=== PATIENT | female | born 1950 | race Caucasian/White ===

== ENCOUNTER → 2020-02-29 | Outpatient (CLI) | payer MEDICARE, OTHER ==
[~2020-02-29] MED LIST: CEPH500T PO; FLUC100T PO; TRM50T PO
--- NOTE | 2020-02-29 12:32 | Diagnostic Imaging Report ---
EXAMINATION: Chest 2 view HISTORY: Cough. Shortness of breath. COPD. COMPARISON: None available. FINDINGS: The lungs are hyperinflated. No focal consolidation or pulmonary masses seen. Mild bronchial wall thickening is present. The cardiac silhouette is normal in size. Aortic stent graft is present. There is calcified aortic atherosclerotic plaque. No large pleural effusion or pneumothorax. The osseous structures demonstrate no acute fracture or dislocation. IMPRESSION: 1. Hyperinflated lungs, consistent with a history of COPD. 2. Bronchial wall thickening, which can be seen with bronchitis/bronchiolitis. No focal consolidation. Dictated by: Dictated on workstation # [id number]
== END ==
LOC: RAD FS 11:43
PROVIDERS: ATTEND Nurse Practitioner Family
DX: J44.1 Chronic obstructive pulmonary disease with (acute) exacerbation (principal); Z09 Encounter for follow-up examination after completed treatment for conditions other than malignant neoplasm; Z87.01 Personal history of pneumonia (recurrent)
CPT/HCPCS: 71046

== ENCOUNTER → 2021-04-22 | Outpatient (CLI) | payer MEDICARE, OTHER | LOC: IHC 18:00 | PROVIDERS: ATTEND Family Medicine | DX: Z43.5 Encounter for attention to cystostomy (principal); N31.9 Neuromuscular dysfunction of bladder, unspecified | CPT/HCPCS: 87088 ==

== ENCOUNTER → 2021-06-27 | Outpatient (CLI) | payer MEDICARE, OTHER | LOC: IHC 13:15 | PROVIDERS: ATTEND Nurse Practitioner Family | DX: Z43.5 Encounter for attention to cystostomy (principal); N31.9 Neuromuscular dysfunction of bladder, unspecified | CPT/HCPCS: 87077; 87088; 87186 ==

== ENCOUNTER → 2021-07-04 | Outpatient (CLI) | payer MEDICARE, OTHER ==
--- NOTE | 2021-07-04 12:44 | Diagnostic Imaging Report ---
INDICATION: Low back pain. EXAMINATION: Lumbar spine. FINDINGS: AP and lateral views of the lumbar spine show normal vertebral body height and alignment. There is mild narrowing of the intervertebral disc spaces with small anterior osteophyte formation. IMPRESSION: Mild spondylosis deformans. No acute abnormality seen. Dictated by: Dictated on workstation # [id number]
--- NOTE | 2021-07-04 12:58 | Diagnostic Imaging Report ---
INDICATION: Neck pain. EXAMINATION: Cervical spine. TECHNIQUE: AP and lateral views of the cervical spine were obtained. FINDINGS: The odontoid is intact. The vertebral body height and alignment appear normal. There is disc space narrowing at C5-C6. IMPRESSION: Degenerative disc changes at C5-C6. No fracture or acute abnormality is seen. Dictated by: Dictated on workstation # [id number]
== END ==
LOC: RAD FS 11:56
PROVIDERS: ATTEND Nurse Practitioner Family
DX: M47.816 Spondylosis without myelopathy or radiculopathy, lumbar region (principal); M50.322 Other cervical disc degeneration at C5-C6 level
CPT/HCPCS: 72040; 72100

== ENCOUNTER → 2021-08-09 | Outpatient (CLI) | payer MEDICARE, OTHER | LOC: IHC 13:19 | PROVIDERS: ATTEND Urology | DX: Z43.5 Encounter for attention to cystostomy (principal); Z96.0 Presence of urogenital implants | CPT/HCPCS: 87077; 87088 ==

== ENCOUNTER → 2021-08-15 | Outpatient (CLI) | payer MEDICARE, OTHER ==
--- NOTE | 2021-08-15 13:44 | Diagnostic Imaging Report ---
EXAMINATION: CHEST (PA AND LATERAL). CLINICAL INDICATION: 70-year-old female, persistent cough. COMPARISON: Chest radiographs February 29, 2020. FINDINGS: The heart size and mediastinal contours are unchanged. There is redemonstrated graft material projecting over the heart. There is no identified pneumothorax. There is no pleural effusion. There is no identified interval focal airspace consolidation. There is mild scarring and/or subsegmental atelectasis in the right and left midlung. There are mild to moderate disc degenerative changes of the mid thoracic spine. IMPRESSION: No identified interval acute cardiopulmonary abnormality. Dictated by: Dictated on workstation # [id number]
== END ==
LOC: RAD FS 11:51
PROVIDERS: ATTEND Nurse Practitioner Family
DX: R05.3 Chronic cough (principal)
CPT/HCPCS: 71046

== ENCOUNTER 2021-10-18 12:56 | Emergency (ER) | payer MEDICARE, OTHER ==
[~2021-10-18] VITALS: Ht 172 cm; Wt 84.0 kg
[2021-10-18 13:00] VITALS: BP 114/64
--- NOTE | 2021-10-18 13:04 | ED Upper Extremity ---
General Stated Complaint: WRIST PAIN History of Present Illness Date Seen by Provider: Oct 18, 2021 Time Seen by Provider: 13:03 Initial Comments 70-year-old female presents with right wrist pain and swelling. She reports that started yesterday. 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 She denies any new injuries or activities. She states that the swelling started yesterday. That there is pain with any movement of her wrist or her thumb. No reports of any recent illnesses. Allergies and Home Medications Allergies Coded Allergies: butorphanol (Unverified Allergy, Unknown, 06/19/16) doxycycline (Unverified Allergy, Unknown, 06/19/16) morphine (Unverified Allergy, Unknown, 06/19/16) Uncoded Allergies: SULFA (Allergy, Unknown, 06/19/16) Patient Home Medication List Home Medication List Reviewed: Yes Cephalexin (Cephalexin) 500 Mg Tablet, 500 MG PO TID Prescribed by: LIZA CASTAÑEDA on 06/19/16 1501 Fluconazole (Diflucan) 100 Mg Tablet, 100 MG PO DAILY Prescribed by: LIZA CASTAÑEDA on 06/19/16 1536 Methylprednisolone (Methylprednisolone Dose Pack) 4 Mg Tab.ds.pk, 4 MG PO UD Prescribed by: NAPOLEON HINKLE on 10/18/21 1415 Naproxen (Naprosyn) 500 Mg Tablet, 500 MG PO BID Prescribed by: NAPOLEON HINKLE on 10/18/21 1415 Tramadol HCl (Tramadol HCl) 50 Mg Tablet, 50 MG PO Q4H PRN for PAIN Prescribed by: LIZA CASTAÑEDA on 06/19/16 1501 Review of Systems Constitutional: No chills, No fever EENTM: no symptoms reported Respiratory: no symptoms reported Cardiovascular: no symptoms reported Gastrointestinal: no symptoms reported Genitourinary: no symptoms reported Musculoskeletal: see HPI Skin: see HPI Psychiatric/Neurological: No Symptoms Reported Past Derbrqr-Rrmllw-Hcglkh Hx Past Medical History Hysterectomy, Orthopedic Headaches /Migraines, Stroke Family Medical History No Pertinent Family Hx Physical Exam Vital Signs Vital Signs - First Documented 10/18/21 13:00 Temp 37.5 Pulse 75 Resp 16 B/P (MAP) 114/64 (81) Pulse Ox 96 O2 Delivery Room Air Capillary Refill : Height, Weight, BMI Height: 5'8" Weight: 240lbs. oz. [id number]; BMI Method:Stated General Appearance: WD/WN Neck: full range of motion, supple Cardiovascular: normal peripheral pulses, regular rate, rhythm Respiratory: lungs clear, normal breath sounds Gastrointestinal: non tender, soft Shoulder: normal inspection Elbow/Forearm: normal inspection Wrist: Yes limited ROM, Yes pain, Yes soft tissue tenderness, Yes swelling Hand: swelling Neurologic/Psychiatric: taker down II-XII nml as tested, no motor/sensory deficits, alert, normal mood/affect, oriented x 3 Skin: other (Mild swelling of the right wrist but no erythema, very minimal increased warmth) Progress/Results/Core Measures Results/Orders Lab Results Laboratory Tests Test 10/18/21 13:13 Range/Units White Blood Count 4.3 4.3-11.0 10^3/uL Red Blood Count 3.74 L 3.80-5.11 10^6/uL Hemoglobin 11.5 11.5-16.0 g/dL Hematocrit 34 L 35-52 % Mean Corpuscular Volume 91 80-99 fL Mean Corpuscular Hemoglobin 31 25-34 pg Mean Corpuscular Hemoglobin Concent 34 32-36 g/dL Red Cell Distribution Width 13.6 10.0-14.5 % Platelet Count 166 130-400 10^3/uL Mean Platelet Volume 9.2 9.0-12.2 fL Immature Granulocyte % (Auto) 1 % Neutrophils (%) (Auto) 56 42-75 % Lymphocytes (%) (Auto) 28 12-44 % Monocytes (%) (Auto) 9 0-12 % Eosinophils (%) (Auto) 6 0-10 % Basophils (%) (Auto) 1 0-10 % Neutrophils # (Auto) 2.4 1.8-7.8 10^3/uL Lymphocytes # (Auto) 1.2 1.0-4.0 10^3/uL Monocytes # (Auto) 0.4 0.0-1.0 10^3/uL Eosinophils # (Auto) 0.3 0.0-0.3 10^3/uL Basophils # (Auto) 0.0 0.0-0.1 10^3/uL Immature Granulocyte # (Auto) 0.0 0.0-0.1 10^3/uL Sodium Level 141 135-145 MMOL/L Potassium Level 3.6 3.6-5.0 MMOL/L Chloride Level 104 98-107 MMOL/L Carbon Dioxide Level 26 21-32 MMOL/L Anion Gap 11 5-14 MMOL/L Blood Urea Nitrogen 10 7-18 MG/DL Creatinine 0.71 0.60-1.30 MG/DL Estimat Glomerular Filtration Rate 91 BUN/Creatinine Ratio 14 Glucose Level 102 70-105 MG/DL Calcium Level 8.9 8.5-10.1 MG/DL Corrected Calcium 8.9 8.5-10.1 MG/DL Total Bilirubin 0.3 0.1-1.0 MG/DL Aspartate Amino Transf (AST/SGOT) 19 5-34 U/L Alanine Aminotransferase (ALT/SGPT) 15 0-55 U/L Alkaline Phosphatase 85 40-136 U/L C-Reactive Protein 1.82 H <0.50 MG/DL Total Protein 7.3 6.4-8.2 GM/DL Albumin 4.0 3.2-4.5 GM/DL My Orders Orders - HINKLE,NAPOLEON L DO Wrist 3 View Right (10/18/21 13:06) Cbc With Automated Diff (10/18/21 13:06) Comprehensive Metabolic Panel (10/18/21 13:06) Uric Acid (10/18/21 13:06) Crp Fs (10/18/21 13:13) Ketorolac Injection (Toradol Injection) (10/18/21 13:54) Vital Signs/I&O 10/18/21 13:00 Temp 37.5 Pulse 75 Resp 16 B/P (MAP) 114/64 (81) Pulse Ox 96 O2 Delivery Room Air Progress Progress Note : Progress Note Patient with likely reactive arthritis however gout is not completely ruled out. Patient will be treated with Naprosyn 500 mg twice daily along with a Medrol Dosepak. She should follow with her primary care provider on Saturday or Saturday of next week. Patient stable discharged home Departure Impression Primary Impression: Reactive arthritis of right wrist Disposition: HOME, SELF-CARE Condition: Stable Departure-Patient Inst. Referrals: MIRIAM LARRY APRN (PCP) Primary Care Physician [facility] (Family) Primary Care Physician Patient Instructions: Gout (DC), Reactive Arthritis Add. Discharge Instructions: Follow-up with your primary care provider first thing next week for recheck of your symptoms You may use topical lidocaine with menthol as directed on pack Ice to affected area for approximate 10 minutes 3-4 times a day Scripts Naproxen (Naprosyn) 500 Mg Tablet 500 MG PO BID, #30 TAB 0 Refills Prov: NAPOLEON HINKLE DO 10/18/21 Methylprednisolone (Methylprednisolone Dose Pack) 4 Mg Tab.ds.pk 4 MG PO UD for 6 Days, #21 PKG PER DOSE PACK INSTRUCTIONS Prov: NAPOLEON HINKLE DO 10/18/21 NAPOLEON HINKLE DO Oct 18, 2021 13:03
[2021-10-18 13:31] LABS: BASOPHILS % (AUTO) 1 % (0-10); EOSINOPHILS # (AUTO) 0.3 10^3/uL (0.0-0.3); EOSINOPHILS % (AUTO) 6 % (0-10); HEMATOCRIT 34 % (35-52); HEMOGLOBIN 11.5 g/dL (11.5-16.0); LYMPHOCYTES # (AUTO) 1.2 10^3/uL (1.0-4.0); LYMPHOCYTES % (AUTO) 28 % (12-44); MEAN CORPUSCULAR HEMOGLOBIN 31 pg (25-34); MEAN CORPUSCULAR HGB CONC 34 g/dL (32-36); MEAN CORPUSCULAR VOLUME 91 fL (80-99); MEAN PLATELET VOLUME 9.2 fL (9.0-12.2); MONOCYTES # (AUTO) 0.4 10^3/uL (0.0-1.0); MONOCYTES % (AUTO) 9 % (0-12); NEUTROPHILS # (AUTO) 2.4 10^3/uL (1.8-7.8); NEUTROPHILS % (AUTO) 56 % (42-75); PLATELET COUNT 166 10^3/uL (130-400); WHITE BLOOD COUNT 4.3 10^3/uL (4.3-11.0)
[2021-10-18 13:41] LABS: BILIRUBIN,TOTAL 0.3 MG/DL (0.1-1.0); CALCIUM 8.9 MG/DL (8.5-10.1); CREATININE SERUM 0.71 MG/DL (0.60-1.30); POTASSIUM 3.6 MMOL/L (3.6-5.0); TOTAL PROTEIN 7.3 GM/DL (6.4-8.2)
--- NOTE | 2021-10-18 13:47 | Diagnostic Imaging Report ---
HISTORY: Swelling and pain in the right wrist. TECHNIQUE: Three views of the right wrist. COMPARISON: None. FINDINGS: No acute fracture or dislocation is seen in the right wrist. Alignment appears normal. There are severe degenerative changes at the basal joints of the thumb. No cortical erosions are seen. IMPRESSION: 1. Advanced degenerative changes of the basal joints of the right thumb. Dictated by: Dictated on workstation # [id number]
[2021-10-18] MEDS ORDERED: KETOROLAC 30 MG/ML VIAL IM STA (13:54)
[2021-10-18] MEDS ORDERED: NAPR-1071 PO (14:15)
[2021-10-18] MEDS ORDERED: METH4TAB10 PO (14:15)
[2021-10-18 15:08] LABS: URIC ACID 4.7 MG/DL (2.6-7.2)
== END 2021-10-18 14:25 | disposition home or self-care (01) ==
LOC: EDUNIT# 12:56 → ER FS 12:58
DX: M19.031 Primary osteoarthritis, right wrist (principal)
CPT/HCPCS: 36415; 73110; 80053; 84550; 85025; 86141

== ENCOUNTER 2022-02-23 16:27 | Emergency (ER) | payer MEDICARE, OTHER ==
[~2022-02-23] VITALS: Ht 172.7 cm; Wt 87.5 kg
[~2022-02-23 16:27] MED LIST changes: +METH4TAB10 PO; +NAPR-1071 PO
[2022-02-23] MEDS ORDERED: NS IV 1000 ML 1,000 ML IV STA (16:40)
[2022-02-23] MEDS ORDERED: dilTIAZem DRIP PRE-MIX 125 ML IV STA (16:40)
--- NOTE | 2022-02-23 16:46 | ED Chest Pain ---
General Stated Complaint: SOA,CP Source: patient Exam Limitations: no limitations History of Present Illness Date Seen by Provider: Feb 23, 2022 Time Seen by Provider: 16:28 Initial Comments 71-year-old female with past medical history of A. fib on Warfarin and Metoprolol, HTN, HLD, COPD, CVA with residual right sided weakness as well as suprapubic catheter coming in due to chest pain. Started 4 hours ago on the left side of her chest going to her left shoulder. It is constant, nothing seems to make it better or worse. She has associated palpitations with it and feels like her heart is racing. When she checked her heart rate it is often in the 120s to 130s. She is taking her medicines today including her warfarin and her metoprolol. Denies any cardiac disease such as CAD, does not have any stents, denies any blood clots in her legs or lungs. She is otherwise denying any other acute complaints. She does endorse some diarrhea that started a couple hours ago. Allergies and Home Medications Allergies Coded Allergies: butorphanol (Unverified Allergy, Unknown, 06/19/16) doxycycline (Unverified Allergy, Unknown, 06/19/16) morphine (Unverified Allergy, Unknown, 06/19/16) Uncoded Allergies: SULFA (Allergy, Unknown, 06/19/16) Patient Home Medication List Home Medication List Reviewed: Yes Cephalexin (Cephalexin) 500 Mg Tablet, 500 MG PO TID Prescribed by: LIZA CASTAÑEDA on 06/19/16 1501 Fluconazole (Diflucan) 100 Mg Tablet, 100 MG PO DAILY Prescribed by: LIZA CASTAÑEDA on 06/19/16 1536 Methylprednisolone (Methylprednisolone Dose Pack) 4 Mg Tab.ds.pk, 4 MG PO UD Prescribed by: NAPOLEON HINKLE on 10/18/21 1415 Naproxen (Naprosyn) 500 Mg Tablet, 500 MG PO BID Prescribed by: NAPOLEON HINKLE on 10/18/21 1415 Tramadol HCl (Tramadol HCl) 50 Mg Tablet, 50 MG PO Q4H PRN for PAIN Prescribed by: LIZA CASTAÑEDA on 06/19/16 1501 Review of Systems Review of Systems Constitutional: No fever EENTM: No Blurred Vision Respiratory: Denies Cough Cardiovascular: Chest Pain Gastrointestinal: Diarrhea; Denies Nausea Genitourinary: No Symptoms Reported Musculoskeletal: no symptoms reported Skin: no symptoms reported Psychiatric/Neurological: No Symptoms Reported Endocrine: No Symptoms Reported Hematologic/Lymphatic: No Symptoms Reported All Other Systems Reviewed Negative Unless Noted: Yes Past Zdpwvfr-Fxdvit-Yhxbhd Hx Patient Social History Tobacco Use?: No Past Medical History Surgeries: Yes (colonoscopy) Hysterectomy, Orthopedic Headaches /Migraines, Stroke Family Medical History No Pertinent Family Hx Physical Exam Vital Signs Vital Signs - First Documented 02/23/22 16:29 Temp 36.8 Pulse 121 Resp 22 B/P (MAP) 154/103 (120) Pulse Ox 94 O2 Delivery Room Air Capillary Refill : Height, Weight, BMI Height: 5'8" Weight: 240lbs. oz. 108.361637ol; 28.00 BMI Method:Stated General Appearance: No Apparent Distress, WD/WN HEENT: PERRL/EOMI, Normal ENT Inspection, Pharynx Normal Neck: Full Range of Motion, Normal Inspection, Non Tender, Supple Respiratory: Chest Non Tender, Lungs Clear, Normal Breath Sounds, No Accessory Muscle Use, No Respiratory Distress Cardiovascular: No Edema, Normal Peripheral Pulses, Irregularly Irregular, Tachycardia Gastrointestinal: Normal Bowel Sounds, Non Tender, Soft; No Distended, No Gua rding Extremity: Normal Capillary Refill, Normal Inspection, Normal Range of Motion, Non Tender, No Calf Tenderness, No Pedal Edema Neurologic/Psychiatric: Alert, No Motor/Sensory Deficits, Normal Mood/Affect Skin: Normal Color, Warm/Dry Lymphatic: No Adenopathy Progress/Results/Core Measures Results/Orders Lab Results Laboratory Tests Test 02/23/22 16:55 Range/Units White Blood Count 3.9 L 4.3-11.0 10^3/uL Red Blood Count 4.00 3.80-5.11 10^6/uL Hemoglobin 12.2 11.5-16.0 g/dL Hematocrit 37 35-52 % Mean Corpuscular Volume 91 80-99 fL Mean Corpuscular Hemoglobin 31 25-34 pg Mean Corpuscular Hemoglobin Concent 33 32-36 g/dL Red Cell Distribution Width 13.7 10.0-14.5 % Platelet Count 136 130-400 10^3/uL Mean Platelet Volume 9.5 9.0-12.2 fL Immature Granulocyte % (Auto) 0 % Neutrophils (%) (Auto) 59 42-75 % Lymphocytes (%) (Auto) 25 12-44 % Monocytes (%) (Auto) 10 0-12 % Eosinophils (%) (Auto) 5 0-10 % Basophils (%) (Auto) 1 0-10 % Neutrophils # (Auto) 2.3 1.8-7.8 10^3/uL Lymphocytes # (Auto) 1.0 1.0-4.0 10^3/uL Monocytes # (Auto) 0.4 0.0-1.0 10^3/uL Eosinophils # (Auto) 0.2 0.0-0.3 10^3/uL Basophils # (Auto) 0.0 0.0-0.1 10^3/uL Immature Granulocyte # (Auto) 0.0 0.0-0.1 10^3/uL Prothrombin Time 17.9 H 12.2-14.7 SEC INR Comment 1.4 0.8-1.4 Activated Partial Thromboplast Time 29 24-35 SEC Sodium Level 138 135-145 MMOL/L Potassium Level 6.2 H 3.6-5.0 MMOL/L Chloride Level 104 98-107 MMOL/L Carbon Dioxide Level 23 21-32 MMOL/L Anion Gap 11 5-14 MMOL/L Blood Urea Nitrogen 19 H 7-18 MG/DL Creatinine 0.94 0.60-1.30 MG/DL Estimat Glomerular Filtration Rate 65 BUN/Creatinine Ratio 20 Glucose Level 107 H 70-105 MG/DL Calcium Level 9.3 8.5-10.1 MG/DL Corrected Calcium 8.9 8.5-10.1 MG/DL Magnesium Level 1.8 1.6-2.4 MG/DL Total Bilirubin 0.4 0.1-1.0 MG/DL Aspartate Amino Transf (AST/SGOT) 153 H 5-34 U/L Alanine Aminotransferase (ALT/SGPT) 94 H 0-55 U/L Alkaline Phosphatase 131 40-136 U/L Troponin I < 0.30 <0.30 NG/ML Pro-B-Type Natriuretic Peptide 2207.0 H <125.0 PG/ML Total Protein 8.3 H 6.4-8.2 GM/DL Albumin 4.5 3.2-4.5 GM/DL Lipase 28 8-78 U/L Influenza Type A (RT-PCR) Not Detected Not Detecte Influenza Type B (RT-PCR) Not Detected Not Detecte SARS-CoV-2 RNA (RT-PCR) Not Detected Not Detecte My Orders Orders - PRAVEEN WILSON MD Cbc With Automated Diff (02/23/22 16:40) Magnesium (02/23/22 16:40) Chest 1 View Ap/Pa Only (02/23/22 16:40) Ekg Tracing (02/23/22 16:40) Comprehensive Metabolic Panel (02/23/22 16:40) Protime With Inr (02/23/22 16:40) Partial Thromboplastin Time (02/23/22 16:40) O2 (02/23/22 16:40) Monitor-Rhythm Ecg Trace Only (02/23/22 16:40) Ed Iv/Invasive Line Start (02/23/22 16:40) Lipase (02/23/22 16:40) Troponin I Fs (02/23/22 16:40) Probnp Fs (02/23/22 16:40) Covid 19 Inhouse Test (02/23/22 16:40) Influenza A And B By Pcr (02/23/22 16:40) Ns Iv 1000 Ml (Sodium Chloride 0.9%) (02/23/22 16:40) Diltiazem Drip Pre-Mix (Cardizem Drip Pr (02/23/22 16:40) Vital Signs/I&O 02/23/22 16:29 Temp 36.8 Pulse 121 Resp 22 B/P (MAP) 154/103 (120) Pulse Ox 94 O2 Delivery Room Air Progress Progress Note : Progress Note 71-year-old female with above history coming in due to chest discomfort. Patient was tachycardic on presentation with heart rate 160s 170s in A. fib with RVR. An EKG was obtained showing A. fib with RVR with a left bundle branch block with no prior EKG to compare to. She does have a known history of A. fib and is on warfarin already. An IV was placed and basic labs were obtained including cardiac biomarkers. Troponin is negative, BNP elevated around 2200, normal creatinine, potassium slightly elevated at 6.2, unsure if this was hemolyzed especially given she has a normal creatinine is making normal amounts of urine. IV fluids initially started on arrival with her high heart rate, and portable chest x-ray showing some congestion so fluids were stopped after she got 300 cc. Diltiazem drip started and heart rate went down from 160s to an average of 105-115. COVID and flu testing negative and were obtained due to her diarrhea. I initially discussed with the patient being mated to [facility] with consultation with our cardiology team. 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 She has had heart surgery there as well and it is in the best interest of her health to have her care continued where her doctors are. I contacted [facility] transfer center and she was excepted for transfer by Dr. Espinoza at 15:30. Initial ECG Impression Date: Feb 23, 2022 Initial ECG Impression Time: 16:36 Initial ECG Rate: 151 Initial ECG Rhythm: A Fib/Flutter Comment Wide QRS with a left bundle branch block, no significant ST changes accounting for that that meet Sgarbossa criteria Diagnostic Imaging Diagonstic Imaging: Xray Plain Films/CT/US/NM/MRI: chest Comments [facility], [place] NAME: [facility] REC#: [id number] PT STATUS: REG ER : 1950 PHYSICIAN: PRAVEEN WILSON MD ADMIT DATE: 02/23/22/ER FS Signed Date of Exam:02/23/22 CHEST 1 VIEW AP/PA ONLY Indication: Chest pain Portable chest 5:09 PM There is cardiomegaly with apical vascular distribution. Lungs are clear. There are no effusions or pneumothoraces. IMPRESSION: Mild congestive heart failure Dictated by: Dictated on workstation # [id number] Dict: 02/23/221718 Trans: 02/23/22 172 TCB [id number] Interpreted by: JAYLEN CROWELL MD Electronically signed by: JAYLEN CROWELL MD 02/23/22 172 Departure Impression Primary Impression: Atrial fibrillation with RVR Additional Impression: Pulmonary vascular congestion Disposition: S[facility]-TRM HOSP Condition: Stable Admissions Decision to Admit/Date: Feb 23, 2022 Time/Decision to Admit Time: 15:20 Transfer Transfer Reason: Patient preference (patient's hazardous materials waste technician and other specialist are at [facility], and she prefers transfer there for continuity of care) Time Spoke to Accepting Phy: 15:30 Transfer Progress Notes Accepted by Dr. Espinoza to go to the cardiac stepdown on the Diltiazem drip. [facility] called back with an assigned bed at 18:30. EMS then contacted for transport. Transfer Time: 18:40 Transfer Facility: [facility] Method of Transfer: EMS Departure-Patient Inst. Referrals: MIRIAM LARRY APRN (PCP) Primary Care Physician [facility] [place] Primary Care Physician PRAVEEN WILSON MD Feb 23, 2022 16:46
[2022-02-23 16:57] LABS: BASOPHILS % (AUTO) 1 % (0-10); EOSINOPHILS # (AUTO) 0.2 10^3/uL (0.0-0.3); EOSINOPHILS % (AUTO) 5 % (0-10); HEMATOCRIT 37 % (35-52); HEMOGLOBIN 12.2 g/dL (11.5-16.0); LYMPHOCYTES % (AUTO) 25 % (12-44); MEAN CORPUSCULAR HEMOGLOBIN 31 pg (25-34); MEAN CORPUSCULAR HGB CONC 33 g/dL (32-36); MEAN CORPUSCULAR VOLUME 91 fL (80-99); MEAN PLATELET VOLUME 9.5 fL (9.0-12.2); MONOCYTES # (AUTO) 0.4 10^3/uL (0.0-1.0); MONOCYTES % (AUTO) 10 % (0-12); NEUTROPHILS # (AUTO) 2.3 10^3/uL (1.8-7.8); NEUTROPHILS % (AUTO) 59 % (42-75); PLATELET COUNT 136 10^3/uL (130-400); WHITE BLOOD COUNT 3.9 10^3/uL (4.3-11.0)
[2022-02-23 17:14] LABS: INR 1.4 (0.8-1.4); PROTHROMBIN TIME PATIENT 17.9 SEC (12.2-14.7)
[2022-02-23 17:17] LABS: ALBUMIN 4.5 GM/DL (3.2-4.5); BILIRUBIN,TOTAL 0.4 MG/DL (0.1-1.0); CALCIUM 9.3 MG/DL (8.5-10.1); CREATININE SERUM 0.94 MG/DL (0.60-1.30); MAGNESIUM 1.8 MG/DL (1.6-2.4); POTASSIUM 6.2 MMOL/L (3.6-5.0); TOTAL PROTEIN 8.3 GM/DL (6.4-8.2)
--- NOTE | 2022-02-23 17:21 | Diagnostic Imaging Report ---
Indication: Chest pain Portable chest 5:09 PM There is cardiomegaly with apical vascular distribution. Lungs are clear. There are no effusions or pneumothoraces. IMPRESSION: Mild congestive heart failure Dictated by: Dictated on workstation # [id number]
[2022-02-23 18:52] VITALS: BP 144/89
== END 2022-02-23 18:45 | disposition short-term general hospital (02) ==
LOC: EDUNIT# 16:27 → ER FS 16:28
DX: I48.20 Chronic atrial fibrillation, unspecified (principal); R09.89 Other specified symptoms and signs involving the circulatory and respiratory systems; I10 Essential (primary) hypertension; E87.5 Hyperkalemia; R79.0 Abnormal level of blood mineral; Z20.822 Contact with and (suspected) exposure to COVID-19; Z28.310 Unvaccinated for COVID-19; Z79.01 Long term (current) use of anticoagulants; Z79.899 Other long term (current) drug therapy
CPT/HCPCS: 36415; 71045; 80053; 83690; 83735; 83880; 84484; 85025; 85610; 85730; 87636; 93005; 93041; 99291

== ENCOUNTER → 2022-04-23 | Outpatient (CLI) | payer MEDICARE, OTHER ==
[~2022-04-23] MED LIST changes: +RT-ALBUTEROL SULF 2.5 MG/3 ML PRE-MIX VIAL INH ONE
--- NOTE | 2022-04-23 15:49 | Diagnostic Imaging Report ---
INDICATION: Allergies with cough. COMPARISON: 08/15/2021. FINDINGS: Cardiac enlargement is again noted. The lungs are well aerated. The lungs show no infiltrate. Pleural scarring again noted along the fissure on the left and right. No pneumothorax or pleural effusion. No bony abnormalities. IMPRESSION: No significant change since previous exam. Continued cardiomegaly. Dictated by: Dictated on workstation # [id number]
== END ==
LOC: RT 10:45
PROVIDERS: ATTEND Internal Medicine Critical Care Medicine
DX: J44.9 Chronic obstructive pulmonary disease, unspecified (principal); J30.1 Allergic rhinitis due to pollen; J96.11 Chronic respiratory failure with hypoxia; G47.33 Obstructive sleep apnea (adult) (pediatric)
CPT/HCPCS: 71046; 94060

== ENCOUNTER 2023-04-04 09:29 | Emergency (ER) | payer MEDICARE, OTHER ==
[~2023-04-04] VITALS: Ht 174 cm; Wt 91.0 kg
[~2023-04-04 09:29] MED LIST changes: -RT-ALBUTEROL SULF 2.5 MG/3 ML PRE-MIX VIAL INH ONE
--- NOTE | 2023-04-04 10:11 | ED General ---
General Chief Complaint: General Problems/Pain Stated Complaint: SENT FROM DR. CAMACHO FOR VIT K Nursing Triage Note: SENT OVER TO ED FOR A REPORTED INR OF GREATER THAN 12. DENIES ANY ADDITIONAL SYMPTOMS OR BLEEDING AT THIS TIME. Source of Information: Patient Exam Limitations: No Limitations History of Present Illness Date Seen by Provider: Apr 04, 2023 Time Seen by Provider: 09:35 Initial Comments This is a 72-year-old woman presents to the emergency room at the direction of Dr. Cmaacho's office for reasons of hypertherapeutic INR. She reports her INR was 12 on a specimen drawn yesterday. She alternates warfarin doses between 7.5 and 3.75 mg daily. Her last dose was yesterday. She uses 7.5 mg tablets and cuts them in half. She reports taking nitrofurantoin antibiotic starting on March 08 for a urinary tract infection. She denies any excessive consumption of vitamin K or other major changes. She was hospitalized in [place] in January for atrial fibrillation and pneumonia. She has been on long-term warfarin therapy for stroke prophylaxis in atrial fibrillation. She reports history of stroke x5 with chronic right-sided weakness. She has COPD and uses oxygen by nasal cannula at 3 L/min. She denies any bleeding. Allergies and Home Medications Allergies Coded Allergies: butorphanol (Unverified Allergy, Unknown, 04/04/23) codeine (Verified Allergy, Unknown, 04/04/23) doxycycline (Unverified Allergy, Unknown, 04/04/23) morphine (Unverified Allergy, Unknown, 04/04/23) Uncoded Allergies: SULFA (Allergy, Unknown, 06/19/16) Patient Home Medication List Home Medication List Reviewed: Yes Cephalexin (Cephalexin) 500 Mg Tablet, 500 MG PO TID Prescribed by: LIZA CASTAÑEDA on 06/19/16 1501 Fluconazole (Diflucan) 100 Mg Tablet, 100 MG PO DAILY Prescribed by: LIZA CASTAÑEDA on 06/19/16 1536 Methylprednisolone (Methylprednisolone Dose Pack) 4 Mg Tab.ds.pk, 4 MG PO UD Prescribed by: NAPOLEON HINKLE on 10/18/21 1415 Naproxen (Naprosyn) 500 Mg Tablet, 500 MG PO BID Prescribed by: NAPOLEON HINKLE on 10/18/21 1415 Tramadol HCl (Tramadol HCl) 50 Mg Tablet, 50 MG PO Q4H PRN for PAIN Prescribed by: LIZA CASTAÑEDA on 06/19/16 1501 Review of Systems Review of Systems Constitutional: no symptoms reported EENTM: no symptoms reported Respiratory: no symptoms reported Cardiovascular: no symptoms reported Gastrointestinal: no symptoms reported Genitourinary: no symptoms reported Musculoskeletal: no symptoms reported Skin: no symptoms reported Psychiatric/Neurological: See HPI Hematologic/Lymphatic: See HPI Immunological/Allergic: no symptoms reported Past Gmehpeb-Ciqmxh-Tsmawk Hx Patient Social History Tobacco Use?: No Use of E-Cig and/or Vaping dev: No Substance use?: No Alcohol Use?: No Pt feels they are or have been: No Immunizations Up To Date Influenza Vaccine Up-to-Date: Yes; Up-to-Date First/Initial COVID19 Vaccinat: not vacc Past Medical History Surgery/Hospitalization HX: CVA, right sided weakness, COPD, AFIB, PNEUMONIA Surgeries: Yes (colonoscopy) Cardiac (heart cath without interventions), Hysterectomy, Orthopedic Respiratory: Yes Asthma, Pneumonia, COPD (uses O2 by nc at 3 lpm) Cardiac: Yes Atrial Fibrillation Neurological: Yes Headaches /Migraines, Stroke (chronic right sided paralysis) Genitourinary: No Gastrointestinal: No Musculoskeletal: No Endocrine: No HEENT: No Cancer: No Psychosocial: No Integumentary: No Blood Disorders: Yes (chronic warfarin therapy) Family Medical History No Pertinent Family Hx Physical Exam Vital Signs Vital Signs - First Documented 04/04/23 09:35 Temp 36.2 Pulse 67 Resp 18 B/P (MAP) 135/62 (86) Pulse Ox 97 O2 Delivery Room Air Capillary Refill : Less Than 3 Seconds Height, Weight, BMI Height: 5'8" Weight: 240lbs. oz. 108.711681ln; 30.00 BMI Method:Stated General Appearance: No Apparent Distress, WD/WN, Obese HEENT: PERRL/EOMI, Normal ENT Inspection Neck: Normal Inspection Respiratory: Lungs Clear, Normal Breath Sounds, No Accessory Muscle Use Cardiovascular: Regular Rate, Rhythm, No Edema, No Murmur Gastrointestinal: Non Tender, Soft, Distended Extremity: Normal Inspection Neurologic/Psychiatric: Alert, Oriented x3, Normal Mood/Affect, Other (right sided paralysis, chronic and unchanged) Skin: Normal Color, Warm/Dry Progress/Results/Core Measures Suspected Sepsis SIRS Temperature: Pulse: 67 Respiratory Rate: 18 Laboratory Tests 04/04/23 10:02: White Blood Count 3.9L Blood Pressure 135 /62 Mean: 86 Laboratory Tests 04/04/23 10:02: Creatinine 0.94, INR Comment 7.5*H, Platelet Count 220 Results/Orders Lab Results Laboratory Tests Test 04/04/23 10:02 Range/Units White Blood Count 3.9 L 4.3-11.0 10^3/uL Red Blood Count 4.21 3.80-5.11 10^6/uL Hemoglobin 12.2 11.5-16.0 g/dL Hematocrit 39 35-52 % Mean Corpuscular Volume 92 80-99 fL Mean Corpuscular Hemoglobin 29 25-34 pg Mean Corpuscular Hemoglobin Concent 32 32-36 g/dL Red Cell Distribution Width 13.5 10.0-14.5 % Platelet Count 220 130-400 10^3/uL Mean Platelet Volume 9.6 9.0-12.2 fL Immature Granulocyte % (Auto) 0 % Neutrophils (%) (Auto) 56 42-75 % Lymphocytes (%) (Auto) 22 12-44 % Monocytes (%) (Auto) 12 0-12 % Eosinophils (%) (Auto) 8 0-10 % Basophils (%) (Auto) 1 0-10 % Neutrophils # (Auto) 2.2 1.8-7.8 10^3/uL Lymphocytes # (Auto) 0.9 L 1.0-4.0 10^3/uL Monocytes # (Auto) 0.5 0.0-1.0 10^3/uL Eosinophils # (Auto) 0.3 0.0-0.3 10^3/uL Basophils # (Auto) 0.1 0.0-0.1 10^3/uL Immature Granulocyte # (Auto) 0.0 0.0-0.1 10^3/uL Percent Immature Platelet Fraction 2.6 0.0-7.6 % Prothrombin Time 62.5 *H 12.2-14.7 SEC INR Comment 7.5 *H 0.8-1.4 Sodium Level 141 135-145 MMOL/L Potassium Level 3.5 L 3.6-5.0 MMOL/L Chloride Level 98 98-107 MMOL/L Carbon Dioxide Level 32 21-32 MMOL/L Anion Gap 11 5-14 MMOL/L Blood Urea Nitrogen 10 7-18 MG/DL Creatinine 0.94 0.60-1.30 MG/DL Estimat Glomerular Filtration Rate 64 BUN/Creatinine Ratio 11 Glucose Level 93 70-105 MG/DL Calcium Level 9.2 8.5-10.1 MG/DL My Orders Orders - ERNST KWOK MD Basic Metabolic Panel (04/04/23 09:47) Protime With Inr (04/04/23 09:47) Ed Iv/Invasive Line Start (04/04/23 09:47) Cbc And Automated Diff (04/04/23 10:11) Vital Signs/I&O 04/04/23 09:35 Temp 36.2 Pulse 67 Resp 18 B/P (MAP) 135/62 (86) Pulse Ox 97 O2 Delivery Room Air Capillary Refill : Less Than 3 Seconds Blood Pressure Mean: 86 Progress Note : Progress Note INR today was 7.5, which is a significant drop from the reported INR of 12 yesterday. According to usual guidelines, warfarin should be held if there is no active bleeding. I have concern about administering any vitamin K in this patient who has had multiple strokes in the past, especially since there was a significant drop in INR from yesterday. Any vitamin K administration could cause a prolonged drop in INR such that returning to therapeutic state may be very difficult. That may significantly increase risk of stroke with her atrial fibrillation. I have advised her to simply hold the warfarin for today and have her INR checked in the clinic again tomorrow. [facility] and will notify Dr. Camacho also. Patient reports no active bleeding today. Labs were reviewed and interpreted by me. INR was 7.5. CBC and BMP demonstrated no clinically relevant abnormalities. See discharge instructions for further discussion. Departure Impression Primary Impression: Supratherapeutic INR Disposition: 01 HOME, SELF-CARE Condition: Stable Departure-Patient Inst. Referrals: MIRIAM LARRY APRN (PCP/Family) Primary Care Physician Patient Instructions: Prothrombin time (PT) test and International Normalized Ratio (INR), Warfarin Add. Discharge Instructions: Your INR is 7.5 today, which is a significant drop from the reported 12 yesterday. Do not take your warfarin dose tonight. You should have your INR checked again tomorrow and reviewed by your doctor. Be very cautious to avoid any type of trauma as you are at high risk of bleeding while your INR is overly elevated. Return to the emergency room or call 911 if you develop any bleeding while you are INR is this high. Although you were sent to the emergency room to receive vitamin K, your INR has dropped significantly since your blood draw yesterday. It is no longer in the range necessitating vitamin K administration. Giving vitamin K at this point in time may cause your INR to drop too low and for a prolonged period of time which might increase her stroke risk. Please call with any problems or concerns. All discharge instructions reviewed with patient and/or family. Voiced understanding. Copy Copies To 1: SELF,ERNST FISHER MD, MD Apr 04, 2023 10:11
[2023-04-04 10:20] LABS: BASOPHILS # (AUTO) 0.1 10^3/uL (0.0-0.1); BASOPHILS % (AUTO) 1 % (0-10); EOSINOPHILS # (AUTO) 0.3 10^3/uL (0.0-0.3); EOSINOPHILS % (AUTO) 8 % (0-10); HEMATOCRIT 39 % (35-52); HEMOGLOBIN 12.2 g/dL (11.5-16.0); LYMPHOCYTES # (AUTO) 0.9 10^3/uL (1.0-4.0); LYMPHOCYTES % (AUTO) 22 % (12-44); MEAN CORPUSCULAR HEMOGLOBIN 29 pg (25-34); MEAN CORPUSCULAR HGB CONC 32 g/dL (32-36); MEAN CORPUSCULAR VOLUME 92 fL (80-99); MEAN PLATELET VOLUME 9.6 fL (9.0-12.2); MONOCYTES # (AUTO) 0.5 10^3/uL (0.0-1.0); MONOCYTES % (AUTO) 12 % (0-12); NEUTROPHILS # (AUTO) 2.2 10^3/uL (1.8-7.8); NEUTROPHILS % (AUTO) 56 % (42-75); PLATELET COUNT 220 10^3/uL (130-400); WHITE BLOOD COUNT 3.9 10^3/uL (4.3-11.0)
[2023-04-04 10:29] LABS: CALCIUM 9.2 MG/DL (8.5-10.1); CREATININE SERUM 0.94 MG/DL (0.60-1.30); POTASSIUM 3.5 MMOL/L (3.6-5.0)
[2023-04-04 10:31] LABS: PROTHROMBIN TIME PATIENT 62.5 SEC (12.2-14.7)
[2023-04-04 10:32] LABS: INR 7.5 (0.8-1.4)
[2023-04-04 11:14] VITALS: BP 133/49
== END 2023-04-04 11:15 | disposition home or self-care (01) ==
LOC: EDUNIT# 09:29 → ER FS 09:33
DX: R79.1 Abnormal coagulation profile (principal); N39.0 Urinary tract infection, site not specified; I48.91 Unspecified atrial fibrillation; J44.9 Chronic obstructive pulmonary disease, unspecified; Z86.73 Personal history of transient ischemic attack (TIA), and cerebral infarction without residual deficits; Z79.01 Long term (current) use of anticoagulants; Z28.310 Unvaccinated for COVID-19; Z99.81 Dependence on supplemental oxygen
CPT/HCPCS: 36415; 80048; 85025; 85610; 99281